=== PATIENT | female | born 1950 | race Caucasian/White ===

== ENCOUNTER → 2016-10-16 | Outpatient (CLI) | payer OTHER ==
[2016-10-16 12:46] LABS: BASOPHILS # (AUTO) 0.04 10*3/UL; EOSINOPHILS # (AUTO) 0.05 10*3/UL; EOSINOPHILS % (AUTO) 1.3 % (0-8); HEMATOCRIT 38.6 % (37.0-47.0); HEMOGLOBIN 13.1 g/dL (12.0-16.0); LYMPHOCYTES # (AUTO) 0.82 10*3/uL; MEAN CORPUSCULAR HEMOGLOBIN 33.9 PG (27-31); MEAN CORPUSCULAR HGB CONC 33.9 g/dL (33-37); MEAN CORPUSCULAR VOLUME 99.7 FL (81-99); MEAN PLATELET VOLUME 10.5 FL (7.4-12.2); MONOCYTES # (AUTO) 0.43 10*3/UL (0.3-0.8); MONOCYTES % (AUTO) 11.3 % (5-15); NEUTROPHILS # (AUTO) 2.48 10*3/UL; NEUTROPHILS % (AUTO) 64.9 % (50-80); RED BLOOD COUNT 3.87 10^6/uL (4.20-5.40)
[2016-10-16 12:54] LABS: PLATELET MORPHOLOGY COMMENT NORMAL MORPHOLOGY (NORM); RBC MORPHOLOGY COMMENT NORMAL MORPHOLOGY (NORM); WBC MORPHOLOGY COMMENT NORMAL MORPHOLOGY (NORM)
[2016-10-16 13:07] LABS: BLOOD UREA NITROGEN 18 mg/dL (7-22); BUN/CREATININE RATIO 25.71 (6-20); CALCIUM 9.6 mg/dL (8.7-10.7); EST GLOMERULAR FILTRATION > 60 (>60 ml/min/1.73m(2)); SERUM ALBUMIN 4.8 g/dL (3.5-4.8)
[2016-10-16 14:38] LABS: FREE T4 (FREE THYROXINE) 0.99 ng/dL (0.93-1.71)
--- NOTE | 2016-10-17 14:19 | EKG ---
[address] [address] Measurements Intervals [place] Rate: 66 P: 63 [place]: 121 QRS: 57 QRSD: 95 T: 49 QT: 424 QTc: 437 Interpretive Statements SINUS RHYTHM RIGHT VENTRICULAR CONDUCTION DELAY No previous ECG available for comparison Electronically Signed On 10-19-16 16:57:21 MDT by Arsenio Lorenzana [email or web address]
== END ==
LOC: MOB LAB 11:15
PROVIDERS: ATTEND Physician Assistant Medical
DX: I10 Essential (primary) hypertension (principal); R60.0 Localized edema; I45.89 Other specified conduction disorders; M75.101 Unspecified rotator cuff tear or rupture of right shoulder, not specified as traumatic; Z83.49 Family history of other endocrine, nutritional and metabolic diseases
CPT/HCPCS: 36415; 80053; 84439; 84443; 85025; 93005; 93010; 99214; G0463

== ENCOUNTER → 2016-10-30 | Outpatient (CLI) | payer OTHER ==
[2016-10-30 11:48] LABS: CHOL/HDL RATIO 3.02 RATIO (0-4.0)
== END ==
LOC: MOB LAB 10:05
PROVIDERS: ATTEND Physician Assistant Medical
DX: I10 Essential (primary) hypertension (principal); D53.9 Nutritional anemia, unspecified; R53.83 Other fatigue; J30.2 Other seasonal allergic rhinitis
CPT/HCPCS: 36415; 80061; 82607; 82746; 85045; G0463; 99213